=== PATIENT | female | born 1965 | race Caucasian/White ===

== ENCOUNTER → 2017-01-12 | Outpatient (CLI) | payer OTHER | LOC: RAD 14:30 | DX: M54.5 Low back pain (principal); M54.32 Sciatica, left side | CPT/HCPCS: 72100 ==

== ENCOUNTER 2017-02-02 10:53 | Emergency (ER) | payer OTHER ==
[2017-02-02 13:14] LABS: HEMOGLOBIN 12.7 gm/dl (12.3-15.3); RED BLOOD COUNT 4.37 M/UL (4.00-5.10); WHITE BLOOD COUNT 10.3 K/UL (4.5-11.0)
== END 2017-02-02 18:52 | disposition home or self-care (01) ==
LOC: ER1 10:53
PROVIDERS: Physician Assistant
DX: R51 Headache (principal); R19.7 Diarrhea, unspecified; R74.8 Abnormal levels of other serum enzymes; I10 Essential (primary) hypertension; F17.210 Nicotine dependence, cigarettes, uncomplicated; R11.0 Nausea
CPT/HCPCS: 36415; 70450; 80053; 82550; 82553; 83690; 83874; 84484; 85025; 86140; 93005; 99284; J2930

== ENCOUNTER → 2021-02-07 | Outpatient (CLI) | payer OTHER ==
[~2021-02-07] MED LIST: ALBUTEROL1.25 MG/3 INH; ASPIRIN EC81 MG PO; ATENOLOL25 MG PO; CLONAZEPAM1 MG PO; DICLOFENAC SOD100 GM TP; DULERA 200 MCG8.8 GM INH; ESTRADIOL1 EAC1 TD; HYDROCHLOROTHIA25 MG PO; HYDROXYZINE PAM50 MG PO; LIDOCAINE OINTMENT TP; NITROSTAT0.4 MG SL; NORFLEX 100 MG100 MG PO; PRAVASTATIN SOD40 MG PO; PREDNISONE 10 M10 MG PO; PREDNISONE 50 M50 MG PO; PROGESTERONE200 MG PO; Voltaren Gel 1 % TOP; Voltaren Gel 1% TOP
== END ==
LOC: KOH-I 10:00
DX: M54.5 Low back pain (principal); M54.32 Sciatica, left side; M48.061 Spinal stenosis, lumbar region without neurogenic claudication; M47.816 Spondylosis without myelopathy or radiculopathy, lumbar region; M48.07 Spinal stenosis, lumbosacral region; M47.817 Spondylosis without myelopathy or radiculopathy, lumbosacral region; M25.78 Osteophyte, vertebrae; M41.9 Scoliosis, unspecified
CPT/HCPCS: 72148

== ENCOUNTER 2021-02-19 19:02 | Emergency (ER) | payer OTHER | END 2021-02-19 22:12 | disposition home or self-care (01) | LOC: ER1 19:02 | DX: R51.9 Headache, unspecified (principal); I10 Essential (primary) hypertension; E78.5 Hyperlipidemia, unspecified; Z88.5 Allergy status to narcotic agent; F17.210 Nicotine dependence, cigarettes, uncomplicated | CPT/HCPCS: 99283 ==

== ENCOUNTER 2021-02-22 13:39 | Emergency (ER) | payer OTHER ==
[2021-02-22 15:40] LABS: HEMOGLOBIN 14.2 gm/dl (12.3-15.3); RED BLOOD COUNT 4.77 M/UL (4.00-5.10)
[2021-02-22 16:15] LABS: BUN/CREATININE RATIO 17 (0-10)
== END 2021-02-22 17:01 | disposition home or self-care (01) ==
LOC: ER1 13:39
PROVIDERS: Physician Assistant Medical
DX: R51.9 Headache, unspecified (principal); R25.3 Fasciculation; I10 Essential (primary) hypertension
CPT/HCPCS: 80053; 85025; 85652; 86140; 96372; 99283; J1885

== ENCOUNTER → 2021-03-29 | Outpatient (CLI) | payer OTHER | LOC: MRI 03-12 10:00 | DX: Z01.812 Encounter for preprocedural laboratory examination (principal); R07.9 Chest pain, unspecified; G44.009 Cluster headache syndrome, unspecified, not intractable | CPT/HCPCS: 36591; 70553; 82565; 84520; A9577 ==

== ENCOUNTER → 2021-04-18 | Outpatient (CLI) | payer OTHER | LOC: KOH-I 08:51 | DX: R93.0 Abnormal findings on diagnostic imaging of skull and head, not elsewhere classified (principal); M43.12 Spondylolisthesis, cervical region; M50.20 Other cervical disc displacement, unspecified cervical region | CPT/HCPCS: 72141 ==

== ENCOUNTER 2021-05-20 10:38 | Emergency (ER) | payer OTHER ==
[2021-05-20 13:06] LABS: HEMOGLOBIN 13.9 gm/dl (12.3-15.3); RED BLOOD COUNT 4.68 M/UL (4.00-5.10); WHITE BLOOD COUNT 10.5 K/UL (4.5-11.0)
[2021-05-20 13:27] LABS: BUN/CREATININE RATIO 18 (0-10)
[2021-05-22] MEDS ORDERED: ALBUTEROL2.5 MG/3 M INH (12:09)
[2021-05-22] MEDS ORDERED: HYDROCODON-ACE1 EAC2 PO (12:10)
[2021-05-22] MEDS ORDERED: PROGESTERONE200 MG PO (12:12)
[2021-05-22] MEDS ORDERED: TRELEGY ELLIPT1 EACH INH (12:14)
== END 2021-05-20 15:25 | disposition home or self-care (01) ==
LOC: ER1 10:38
PROVIDERS: Physician Assistant
DX: R91.8 Other nonspecific abnormal finding of lung field (principal); I10 Essential (primary) hypertension; E78.5 Hyperlipidemia, unspecified; F17.210 Nicotine dependence, cigarettes, uncomplicated; Z88.5 Allergy status to narcotic agent; Z20.822 Contact with and (suspected) exposure to COVID-19
CPT/HCPCS: 71045; 71260; 80053; 81001; 85025; 96374; 99284; Q9967; U0002

== ENCOUNTER → 2021-05-22 | Day surgery (SDC) | payer OTHER ==
[~2021-05-22] MED LIST changes: +ALBUTEROL2.5 MG/3 M INH; +HYDROCODON-ACE1 EAC2 PO; +TRELEGY ELLIPT1 EACH INH
== END | disposition home or self-care (01) ==
LOC: OR 11:23
DX: R91.8 Other nonspecific abnormal finding of lung field (principal); R59.0 Localized enlarged lymph nodes; E78.5 Hyperlipidemia, unspecified; J98.11 Atelectasis; F17.210 Nicotine dependence, cigarettes, uncomplicated; I12.9 Hypertensive chronic kidney disease with stage 1 through stage 4 chronic kidney disease, or unspecified chronic kidney disease; N18.9 Chronic kidney disease, unspecified; J42 Unspecified chronic bronchitis; J31.0 Chronic rhinitis; J32.9 Chronic sinusitis, unspecified; G56.22 Lesion of ulnar nerve, left upper limb; E66.9 Obesity, unspecified; G47.33 Obstructive sleep apnea (adult) (pediatric); E55.9 Vitamin D deficiency, unspecified; Z88.6 Allergy status to analgesic agent; M41.9 Scoliosis, unspecified; Z20.822 Contact with and (suspected) exposure to COVID-19; Z98.51 Tubal ligation status
CPT/HCPCS: 87015; 87070; 87116; 87205; 87206; J0330; J1100; J2250; J2405; J2704; J3010; J7030

== ENCOUNTER → 2021-05-28 | Outpatient (CLI) | payer OTHER | LOC: HEART 5 14:31 | DX: J44.9 Chronic obstructive pulmonary disease, unspecified (principal) | CPT/HCPCS: 94060; 94729 ==

== ENCOUNTER → 2021-06-07 | Outpatient (CLI) | payer OTHER | LOC: RAD 11:29 | DX: C79.51 Secondary malignant neoplasm of bone (principal); C80.1 Malignant (primary) neoplasm, unspecified | CPT/HCPCS: 73502; 73552 ==

== ENCOUNTER → 2021-06-11 | Day surgery (SDC) | payer OTHER | END | disposition home or self-care (01) | LOC: OR 05:02 | DX: C34.90 Malignant neoplasm of unspecified part of unspecified bronchus or lung (principal); I10 Essential (primary) hypertension; E78.5 Hyperlipidemia, unspecified; E78.00 Pure hypercholesterolemia, unspecified; K21.9 Gastro-esophageal reflux disease without esophagitis; E66.01 Morbid (severe) obesity due to excess calories; M19.90 Unspecified osteoarthritis, unspecified site; J44.9 Chronic obstructive pulmonary disease, unspecified; F41.9 Anxiety disorder, unspecified; F17.200 Nicotine dependence, unspecified, uncomplicated; Z68.36 Body mass index [BMI] 36.0-36.9, adult; Z98.51 Tubal ligation status; Z79.82 Long term (current) use of aspirin; Z79.1 Long term (current) use of non-steroidal anti-inflammatories (NSAID); Z79.899 Other long term (current) drug therapy; Z88.8 Allergy status to other drugs, medicaments and biological substances; Z80.0 Family history of malignant neoplasm of digestive organs | CPT/HCPCS: 71045; 77001; C1769; C1788; J0690; J1642; J1644; J7030; J7040; J7120 ==

== ENCOUNTER → 2021-06-12 | Outpatient (CLI) | payer OTHER | LOC: MRI 08:26 | DX: C34.90 Malignant neoplasm of unspecified part of unspecified bronchus or lung (principal); C79.51 Secondary malignant neoplasm of bone; Z12.89 Encounter for screening for malignant neoplasm of other sites; G93.9 Disorder of brain, unspecified | CPT/HCPCS: 70553; A9577 ==

== ENCOUNTER → 2021-09-05 | Outpatient (CLI) | payer OTHER | LOC: OPSV 08:30 → MRI 08:30 | DX: C34.90 Malignant neoplasm of unspecified part of unspecified bronchus or lung (principal); C79.51 Secondary malignant neoplasm of bone; E86.0 Dehydration | CPT/HCPCS: 70553; A9577 ==

== ENCOUNTER → 2021-09-12 | Outpatient (CLI) | payer OTHER | LOC: OPSV 09:50 → CT 10:00 | DX: C34.90 Malignant neoplasm of unspecified part of unspecified bronchus or lung (principal); C79.51 Secondary malignant neoplasm of bone; E86.0 Dehydration; M84.58XA Pathological fracture in neoplastic disease, other specified site, initial encounter for fracture; K76.0 Fatty (change of) liver, not elsewhere classified | CPT/HCPCS: 71260; 96360; 96361; J7030; Q9967 ==

== ENCOUNTER 2021-09-23 07:41 | Emergency (ER) | payer OTHER ==
[2021-09-23 10:38] LABS: RED BLOOD COUNT 3.93 M/UL (4.00-5.10); WHITE BLOOD COUNT 7.9 K/UL (4.5-11.0)
== END 2021-09-23 12:00 | disposition home or self-care (01) ==
LOC: ER1 07:41
PROVIDERS: Physician Assistant
DX: U07.1 COVID-19 (principal); F17.200 Nicotine dependence, unspecified, uncomplicated; Z88.5 Allergy status to narcotic agent; I10 Essential (primary) hypertension; Z85.118 Personal history of other malignant neoplasm of bronchus and lung
CPT/HCPCS: 80053; 81001; 85025; 99284

== ENCOUNTER → 2021-09-24 | Outpatient (CLI) | payer OTHER ==
[~2021-09-24] VITALS: Ht 160 cm; Wt 90.7 kg
== END ==
LOC: EROP 10:50
DX: U07.1 COVID-19 (principal); Z23 Encounter for immunization; I10 Essential (primary) hypertension; Z51.11 Encounter for antineoplastic chemotherapy
CPT/HCPCS: M0247; Q0247

== ENCOUNTER 2021-10-28 16:08 | Emergency (ER) | payer OTHER ==
[2021-10-28 18:15] LABS: HEMOGLOBIN 11.8 gm/dl (12.3-15.3); RED BLOOD COUNT 3.64 M/UL (4.00-5.10); WHITE BLOOD COUNT 8.7 K/UL (4.5-11.0)
[2021-10-28 18:40] LABS: BUN/CREATININE RATIO 13 (0-10)
== END 2021-10-28 21:17 | disposition home or self-care (01) ==
LOC: ER1 16:08
PROVIDERS: Emergency Medicine
DX: N32.89 Other specified disorders of bladder (principal); I10 Essential (primary) hypertension; R29.700 NIHSS score 0; E87.6 Hypokalemia; F17.200 Nicotine dependence, unspecified, uncomplicated
CPT/HCPCS: 70450; 71045; 80053; 81001; 82550; 82553; 83690; 84484; 85025; 85610; 85730; 93005; 99284

== ENCOUNTER → 2021-10-30 | Outpatient (CLI) | payer OTHER | LOC: KOH-I 14:57 | DX: C34.90 Malignant neoplasm of unspecified part of unspecified bronchus or lung (principal); C79.51 Secondary malignant neoplasm of bone; I83.891 Varicose veins of right lower extremity with other complications | CPT/HCPCS: 93971 ==

== ENCOUNTER → 2021-11-06 | Outpatient (CLI) | payer OTHER | LOC: EMI 08:00 | DX: C79.31 Secondary malignant neoplasm of brain (principal); C79.51 Secondary malignant neoplasm of bone; G93.9 Disorder of brain, unspecified | CPT/HCPCS: 70553; A9577 ==

== ENCOUNTER → 2021-11-22 | Outpatient (CLI) | payer OTHER | LOC: MRI 13:55 | DX: M54.50 Low back pain, unspecified (principal); M48.56XA Collapsed vertebra, not elsewhere classified, lumbar region, initial encounter for fracture; M51.36 Other intervertebral disc degeneration, lumbar region; M48.061 Spinal stenosis, lumbar region without neurogenic claudication | CPT/HCPCS: 72148 ==

== ENCOUNTER → 2021-12-16 | Outpatient (CLI) | payer OTHER | LOC: MRI 08:22 | DX: C34.90 Malignant neoplasm of unspecified part of unspecified bronchus or lung (principal); R42 Dizziness and giddiness; R55 Syncope and collapse | CPT/HCPCS: 70553; A9577 ==

== ENCOUNTER → 2022-01-03 | Outpatient (CLI) | payer OTHER ==
[~2022-01-03] MED LIST changes: +DOTTI1 EACH TD; -ESTRADIOL1 EAC1 TD; +GABAPENTIN100 MG PO; -HYDROCODON-ACE1 EAC2 PO; +HYDROCODON-ACE1 EAC6 PO; +K-TAB ER20 MEQ PO; +LASIX20 MG PO; +LASIX40 MG PO; +LEVOTHYROXINE25 MCG PO; +LEVOTHYROXINE50 MCG PO; +MAG-OX 400 TAB400 MG PO; +MONTELUKAST SOD10 MG PO; +NARCAN4 MG; +OMEPRAZOLE40 MG PO; +POTASSIUM CHLO20 ME2 PO; +PROAIR HFA8.5 GM INH
== END ==
LOC: LAB 10:07
DX: E87.6 Hypokalemia (principal); C79.51 Secondary malignant neoplasm of bone; R55 Syncope and collapse; R22.43 Localized swelling, mass and lump, lower limb, bilateral
CPT/HCPCS: 36415; 84132

== ENCOUNTER 2022-01-06 12:29 | Inpatient (IN) | payer OTHER ==
[~2022-01-06] VITALS: Ht 160 cm; Wt 98.4 kg
[~2022-01-06 12:29] MED LIST changes: -GABAPENTIN100 MG PO; -K-TAB ER20 MEQ PO; -LASIX20 MG PO; -LASIX40 MG PO; -LEVOTHYROXINE25 MCG PO; -LEVOTHYROXINE50 MCG PO; -MAG-OX 400 TAB400 MG PO; -MONTELUKAST SOD10 MG PO; -NARCAN4 MG; -OMEPRAZOLE40 MG PO; -POTASSIUM CHLO20 ME2 PO; -PROAIR HFA8.5 GM INH
[2022-01-06 15:09] LABS: HEMOGLOBIN 10.9 gm/dl (12.3-15.3); RED BLOOD COUNT 3.46 M/UL (4.00-5.10); WHITE BLOOD COUNT 4.8 K/UL (4.5-11.0)
[2022-01-06 15:38] LABS: BUN/CREATININE RATIO 10 (0-10)
[2022-01-06] MEDS ORDERED: LASIX20 MG PO (17:47)
[2022-01-06] MEDS ORDERED: GABAPENTIN100 MG PO (17:47)
[2022-01-06] MEDS ORDERED: NARCAN4 MG (17:48)
[2022-01-06] MEDS ORDERED: PROAIR HFA8.5 GM INH (17:48)
[2022-01-06] MEDS ORDERED: POTASSIUM CHLO20 ME2 PO (17:48)
[2022-01-06] MEDS ORDERED: OMEPRAZOLE40 MG PO (17:49)
[2022-01-06] MEDS ORDERED: LEVOTHYROXINE25 MCG PO (17:49)
[2022-01-06] MEDS ORDERED: MONTELUKAST SOD10 MG PO (17:49)
[2022-01-07 07:10] LABS: HEMOGLOBIN 9.6 gm/dl (12.3-15.3); RED BLOOD COUNT 3.17 M/UL (4.00-5.10); WHITE BLOOD COUNT 4.4 K/UL (4.5-11.0)
[2022-01-07 08:08] LABS: BUN/CREATININE RATIO 12 (0-10)
[2022-01-08 03:26] LABS: HEMOGLOBIN 10.2 gm/dl (12.3-15.3); RED BLOOD COUNT 3.25 M/UL (4.00-5.10)
[2022-01-08 04:31] LABS: BUN/CREATININE RATIO 14 (0-10)
[2022-01-08] MEDS ORDERED: MAG-OX 400 TAB400 MG PO (14:14)
[2022-01-08] MEDS ORDERED: ASPIRIN EC81 MG PO (14:14)
[2022-01-08] MEDS ORDERED: LEVOTHYROXINE50 MCG PO (14:14)
[2022-01-08] MEDS ORDERED: LASIX40 MG PO (14:14)
[2022-01-08] MEDS ORDERED: K-TAB ER20 MEQ PO (14:14)
== END 2022-01-08 16:30 | disposition home or self-care (01) | DRG 291 ==
LOC: ER1 12:29 → CDU 16:36 → M/S 16:36
PROVIDERS: Emergency Medicine; Internal Medicine; ADMIT Internal Medicine
PROC: B24BZZZ Ultrasonography of Heart with Aorta (ICD-10-PCS; principal; 2022-01-07)
DX: I11.0 Hypertensive heart disease with heart failure (principal); I50.33 Acute on chronic diastolic (congestive) heart failure; C34.90 Malignant neoplasm of unspecified part of unspecified bronchus or lung; E78.5 Hyperlipidemia, unspecified; E87.6 Hypokalemia; E27.9 Disorder of adrenal gland, unspecified; E66.9 Obesity, unspecified; E03.9 Hypothyroidism, unspecified; D64.9 Anemia, unspecified; Z92.21 Personal history of antineoplastic chemotherapy; Z98.890 Other specified postprocedural states; Z87.891 Personal history of nicotine dependence; Z88.8 Allergy status to other drugs, medicaments and biological substances; Z68.37 Body mass index [BMI] 37.0-37.9, adult
CPT/HCPCS: ECHO; 36415; 80053; 82550; 82553; 82607; 83540; 83550; 83605; 83735; 83880; 84100; 84439; 84443; 84484; 85025; 85027; 85652; 86140; 87040; 93005; 93306; 93970; 94640; 94664; 94760; 99285; J1650; J1940; J2405; J3475; Q9967

== ENCOUNTER → 2022-01-22 | Outpatient (CLI) | payer OTHER ==
[~2022-01-22] MED LIST changes: +GABAPENTIN100 MG PO; +K-TAB ER20 MEQ PO; +LASIX20 MG PO; +LASIX40 MG PO; +LEVOTHYROXINE25 MCG PO; +LEVOTHYROXINE50 MCG PO; +MAG-OX 400 TAB400 MG PO; +MONTELUKAST SOD10 MG PO; +NARCAN4 MG; +OMEPRAZOLE40 MG PO; +POTASSIUM CHLO20 ME2 PO; +PROAIR HFA8.5 GM INH
[2022-01-22 15:00] LABS: HEMOGLOBIN 11.3 gm/dl (12.3-15.3); RED BLOOD COUNT 3.62 M/UL (4.00-5.10); WHITE BLOOD COUNT 8.1 K/UL (4.5-11.0)
[2022-01-22 16:05] LABS: BUN/CREATININE RATIO 11 (0-10)
== END ==
LOC: CT 14:00
PROVIDERS: Family Medicine
DX: E55.9 Vitamin D deficiency, unspecified (principal); E78.5 Hyperlipidemia, unspecified; I10 Essential (primary) hypertension; R10.84 Generalized abdominal pain; R22.43 Localized swelling, mass and lump, lower limb, bilateral; R55 Syncope and collapse; C79.51 Secondary malignant neoplasm of bone; K76.0 Fatty (change of) liver, not elsewhere classified; N32.9 Bladder disorder, unspecified; S32.019A Unspecified fracture of first lumbar vertebra, initial encounter for closed fracture; E27.9 Disorder of adrenal gland, unspecified
CPT/HCPCS: 36415; 80053; 80061; 83735; 85027; Q9967

== ENCOUNTER → 2022-02-03 | Outpatient (CLI) | payer OTHER ==
[2022-02-03 11:06] LABS: ADENOVIRUS F 40/41 Not Detected (Negative); ASTROVIRUS Not Detected (Negative); CAMPYLOBACTER Not Detected (Negative); CRYPTOSPORIDIUM Not Detected (Negative); E.COLI 0157 Not Detected (Negative); ENTAMOEBA HISTOLYTICA Not Detected (Negative); ENTEROAGGREGATIVE E.COLI (EAEC Not Detected (Negative); ENTEROPATHOGENIC E.COLI (EPEC) Not Detected (Negative); ENTEROTOXIGENIC E.COLI (ETEC) Not Detected (Negative); GIARDIA LAMBLIA Not Detected (Negative); NOROVIRUS GI/GII Not Detected (Negative); PLESIOMONAS SHIGELLOIDES Not Detected (Negative); ROTOVIRUS A Not Detected (Negative); SALMONELLA Not Detected (Negative); SAPOVIRUS Not Detected (Negative); SHIG/ENTEROINVAS.ECOLI (EIEC) Not Detected (Negative); SHIGA-LIK TOX.PRO.E.COLI (STEC Not Detected (Negative); VIBRIO Not Detected (Negative); VIBRIO CHOLERAE Not Detected (Negative); YERSINIA ENTEROCOLITICA Not Detected (Negative)
[2022-02-03 11:11] LABS: HEMOGLOBIN 11.8 gm/dl (12.3-15.3); RED BLOOD COUNT 3.85 M/UL (4.00-5.10); WHITE BLOOD COUNT 6.5 K/UL (4.5-11.0)
[2022-02-03 12:56] LABS: CLOSTRIDIUM DIFFICILE TOX A/B Not Detected (Negative)
== END ==
LOC: LAB 10:34
PROVIDERS: Internal Medicine Gastroenterology
DX: R19.7 Diarrhea, unspecified (principal)
CPT/HCPCS: 36415; 80076; 85027; 85610; 87507

== ENCOUNTER → 2022-03-04 | Day surgery (SDC) | payer OTHER ==
[~2022-03-04] MED LIST changes: +BAYER CHEWABLE81 MG PO; +PRILOSEC OTC20 MG PO; +SYNTHROID25 MCG PO
== END | disposition home or self-care (01) ==
LOC: OR 08:22
DX: K62.1 Rectal polyp (principal); K44.9 Diaphragmatic hernia without obstruction or gangrene; K22.2 Esophageal obstruction; K31.9 Disease of stomach and duodenum, unspecified; K29.70 Gastritis, unspecified, without bleeding; K76.0 Fatty (change of) liver, not elsewhere classified; K21.9 Gastro-esophageal reflux disease without esophagitis; I10 Essential (primary) hypertension; F41.9 Anxiety disorder, unspecified; E78.5 Hyperlipidemia, unspecified; J44.9 Chronic obstructive pulmonary disease, unspecified; E66.01 Morbid (severe) obesity due to excess calories; F17.210 Nicotine dependence, cigarettes, uncomplicated; Z88.5 Allergy status to narcotic agent; Z68.35 Body mass index [BMI] 35.0-35.9, adult; Z79.82 Long term (current) use of aspirin; Z79.899 Other long term (current) drug therapy
CPT/HCPCS: J7040

== ENCOUNTER → 2022-04-18 | Outpatient (CLI) | payer OTHER | LOC: MRI 04-08 10:00 | DX: C34.90 Malignant neoplasm of unspecified part of unspecified bronchus or lung (principal); C79.31 Secondary malignant neoplasm of brain; C79.51 Secondary malignant neoplasm of bone | CPT/HCPCS: 36415; 70553; 82565; A9577 ==

== ENCOUNTER → 2022-04-30 | Outpatient (CLI) | payer OTHER | LOC: CT 10:44 | DX: C34.90 Malignant neoplasm of unspecified part of unspecified bronchus or lung (principal); C79.51 Secondary malignant neoplasm of bone; R55 Syncope and collapse; R22.43 Localized swelling, mass and lump, lower limb, bilateral | CPT/HCPCS: 71260; Q9967 ==